=== PATIENT | female | born 1990 | race Caucasian/White ===

== ENCOUNTER 2017-04-11 17:09 | Emergency (ER) | payer OTHER ==
[~2017-04-11] VITALS: Ht 157.4 cm; Wt 72.6 kg
[~2017-04-11 17:09] MED LIST: ANAPROX DS550 MG PO; BACTRIM DS 8001 TA1 PO; BIAXIN500 MG PO; CAMILA0.35 MG PO; CLARITIN10 MG PO; DARVOCET N 1001 TAB PO; MACROBID100 M1 PO; MEDROL DOSEPAK4 MG PO; NKHM; PERCOCET 325 MG1 TA2 PO; PERCOCET 325 MG1 TA5 PO; PRENATAL1 TA3 PO; PROVENTIL0.09 MG/AC IH; SEPTRA DS 800 M1 TAB PO; VICODIN 5/500 505 MG PO; ZANTAC 150150 MG PO; ZITHROMAX Z PA250 MG PO; ZOFRAN ODT4 MG SL
[2017-04-11 17:55] LABS: HEMATOCRIT 40.5 % (37.0-47.0); HEMOGLOBIN 13.7 g/dl (12.0-16.0); MEAN CELL VOLUME 98.8 fl (81.0-99.0); MEAN CORPUSCULAR HGB 33.4 pg (27.0-31.0); MEAN CORPUSCULAR HGB CONC 33.8 g/dl (33.0-37.0); MEAN PLATELET VOLUME 9.3 fl (9.6-12.3); PLATELET COUNT AUTOMATED 292 10*3/uL (130-400); RED CELL DISTRI WIDTH 11.9 % (0-14.5); WHITE BLOOD COUNT 11.1 10*3/uL (4.8-10.8)
[2017-04-11 18:12] LABS: ALBUMIN 4.1 gm/dl (3.1-4.5); ALKALINE PHOSPHATASE 61 U/L (45-117); BILIRUBIN, TOTAL 0.1 mg/dl (0.2-1.0); BUN 10 mg/dl (7-24); CARBON DIOXIDE 28 mmol/L (21-32); CHLORIDE 106 mmol/L (98-107); CPK 60 U/L (26-192); EST GLOM FILT AFRICAN AMERICAN > 60 ml/min; GLUCOSE 89 mg/dL (65-99); LDH 157 U/L (84-246); POTASSIUM 3.9 mmol/L (3.5-5.1); SGOT/AST 9 IU/L (3-35); SGPT/ALT 13 U/L (12-78); SODIUM 143 mmol/L (136-145)
[2017-04-11 18:15] LABS: EOSINOPHIL # 0.1 10*3/uL (0-0.4); EOSINOPHILS 1 % (1-4); LYMPHOCYTE # 5.6 10*3/uL (1.3-4.4); MONOCYTE # 0.7 10*3/uL (0.1-1.0); NEUTROPHIL # 4.8 10*3/uL (2.3-7.9); NEUTROPHILS 43 % (47-73); PLATELET SUFFICIENCY NORMAL (NORMAL); TOTAL CELLS COUNTED 100 #CELLS
[2017-04-11 18:16] LABS: CKMB < 0.5 ng/ml (0.5-3.6); TROPONIN I < 0.015 ng/ml (<0.045)
[2017-04-11] MEDS ORDERED: ZITHROMAX250 MG PO (18:31)
[2017-04-11] MEDS ORDERED: MEDROL DOSEPAK4 MG PO (18:31)
[2017-04-11 19:01] VITALS: BP 116/78
== END 2017-04-11 18:35 | disposition home or self-care (01) ==
LOC: ED 17:09
PROVIDERS: Physician Assistant
DX: J40 Bronchitis, not specified as acute or chronic (principal); B34.9 Viral infection, unspecified; F17.200 Nicotine dependence, unspecified, uncomplicated

== ENCOUNTER 2020-10-23 17:02 | Emergency (ER) | payer SELFPAY ==
[~2020-10-23] VITALS: Ht 154.9 cm; Wt 71.7 kg
[~2020-10-23 17:02] MED LIST changes: +ZITHROMAX250 MG PO
[2020-10-23 17:36] VITALS: BP 127/82
== END 2020-10-23 17:51 | disposition home or self-care (01) ==
LOC: ED 17:02
DX: U07.1 COVID-19 (principal); Z79.899 Other long term (current) drug therapy

== ENCOUNTER 2020-10-31 10:24 | Emergency (ER) | payer SELFPAY ==
[~2020-10-31] VITALS: Ht 154.9 cm; Wt 70.8 kg
[2020-10-31 11:01] VITALS: BP 112/62
== END 2020-10-31 11:16 | disposition home or self-care (01) ==
LOC: ED 10:24
DX: U07.1 COVID-19 (principal); Z79.899 Other long term (current) drug therapy

== ENCOUNTER → 2020-11-03 | Outpatient (CLI) | payer BC | END | disposition home or self-care (01) | LOC: COVID19 09:22 | PROVIDERS: ATTEND Internal Medicine | DX: U07.1 COVID-19 (principal) ==

== ENCOUNTER → 2020-11-13 | Outpatient (CLI) | payer BC | END | disposition home or self-care (01) | LOC: COVID19 09:52 | PROVIDERS: ATTEND Internal Medicine | DX: U07.1 COVID-19 (principal); R06.00 Dyspnea, unspecified ==

== ENCOUNTER → 2020-12-04 | Outpatient (CLI) | payer BC | END | disposition home or self-care (01) | LOC: COVID19 09:15 | PROVIDERS: ATTEND Student in an Organized Health Care Education/Training Program | DX: Z20.822 Contact with and (suspected) exposure to COVID-19 (principal) ==

== ENCOUNTER 2021-01-05 14:32 | Emergency (ER) | payer BC ==
[~2021-01-05] VITALS: Ht 154.9 cm; Wt 70.3 kg
[2021-01-05 14:39] VITALS: BP 125/80
[2021-01-05 15:13] LABS: BASO # 0.1 10*3/uL (0.0-0.1); BASO % 0.7 % (0.0-1.0); EOS # 0.1 10*3/uL (0.0-0.4); EOS % 1.3 % (1.0-4.0); HEMATOCRIT 42.1 % (37.0-47.0); LYMPH # 4.9 10*3/uL (1.3-4.4); LYMPH % 45.6 % (27.0-41.0); MEAN CELL VOLUME 101.7 fl (81.0-99.0); MEAN CORPUSCULAR HGB 34.8 pg (27.0-31.0); MEAN CORPUSCULAR HGB CONC 34.2 g/dl (33.0-37.0); MEAN PLATELET VOLUME 9.2 fl (9.6-12.3); MONO # 0.8 10*3/uL (0.1-1.0); MONO % 7.3 % (3.0-9.0); NEUT # 4.8 10*3/uL (2.3-7.9); NEUT % 44.9 % (47.0-73.0); PLATELET COUNT AUTOMATED 335 10*3/uL (130-400); RED BLOOD COUNT 4.14 10*6/uL (4.10-5.10); RED CELL DISTRI WIDTH 11.6 % (0-14.5); WHITE BLOOD COUNT 10.7 10*3/uL (4.8-10.8)
[2021-01-05 15:19] LABS: BILIRUBIN Negative (Negative); BLOOD Negative (Negative); CLARITY Cloudy (Clear); COLOR Yellow (Yellow); GLUCOSE Negative (Negative); KETONE Negative (Negative); LEUKO ESTERASE Negative (Negative); NITRITE Negative (Negative); UROBILINOGEN 0.2 E.U./dl (0.0-1.0)
[2021-01-05 15:27] LABS: BACTERIA 2+; EPITHELIAL CELLS TNTC; MUCOUS TRACE; RBC 0-2 rbc/hpf (0-2); WBC 0-2 wbc/hpf (0-5)
[2021-01-05 15:30] LABS: ALKALINE PHOSPHATASE 61 U/L (45-117); BETA-HCG, QUANT < 1.0 mIU/mL (1-3); BUN 6 mg/dl (7-24); CHLORIDE 108 mmol/L (98-107); CREATININE 0.75 mg/dL (0.55-1.02); LIPASE 67 U/L (73-393); SGOT/AST 19 IU/L (3-35); SODIUM 140 mmol/L (136-145)
[2021-01-05 15:33] LABS: SGPT/ALT 46 U/L (12-78)
[2021-01-05] MEDS ORDERED: CIPRO500 MG PO (17:49)
[2021-01-05] MEDS ORDERED: PHENERGAN25 M3 PO (17:49)
[2021-01-05] MEDS ORDERED: FLAGYL500 MG PO (17:49)
== END 2021-01-05 18:05 | disposition home or self-care (01) ==
LOC: ED 14:32
PROVIDERS: Emergency Medicine
DX: K52.9 Noninfective gastroenteritis and colitis, unspecified (principal); Z79.899 Other long term (current) drug therapy

== ENCOUNTER 2021-09-07 08:16 | Emergency (ER) | payer OTHER ==
[~2021-09-07] VITALS: Ht 154.9 cm; Wt 68.0 kg
[~2021-09-07 08:16] MED LIST changes: +CIPRO500 MG PO; +FLAGYL500 MG PO; +PHENERGAN25 M3 PO
[2021-09-07 08:26] VITALS: BP 128/83
[2021-09-07 09:16] LABS: BASO # 0.1 10*3/uL (0.0-0.1); BASO % 0.8 % (0.0-1.0); EOS # 0.2 10*3/uL (0.0-0.4); EOS % 1.8 % (1.0-4.0); HEMATOCRIT 41.3 % (37.0-47.0); LYMPH # 2.8 10*3/uL (1.3-4.4); LYMPH % 22.2 % (27.0-41.0); MEAN CORPUSCULAR HGB 35.2 pg (27.0-31.0); MEAN CORPUSCULAR HGB CONC 34.1 g/dl (33.0-37.0); MEAN PLATELET VOLUME 9.3 fl (9.6-12.3); MONO # 0.9 10*3/uL (0.1-1.0); MONO % 7.2 % (3.0-9.0); NEUT # 8.4 10*3/uL (2.3-7.9); NEUT % 67.8 % (47.0-73.0); PLATELET COUNT AUTOMATED 280 10*3/uL (130-400); RED BLOOD COUNT 4.01 10*6/uL (4.10-5.10); RED CELL DISTRI WIDTH 11.9 % (0-14.5); WHITE BLOOD COUNT 12.4 10*3/uL (4.8-10.8)
[2021-09-07 09:34] LABS: ALBUMIN 3.5 gm/dl (3.1-4.5); ALKALINE PHOSPHATASE 66 U/L (45-117); BUN 7 mg/dl (7-24); CHLORIDE 111 mmol/L (98-107); CREATININE 0.67 mg/dL (0.55-1.02); LIPASE 51 U/L (73-393); POTASSIUM 3.9 mmol/L (3.5-5.1); SGOT/AST 16 IU/L (3-35); SGPT/ALT 37 U/L (12-78); SODIUM 140 mmol/L (136-145); TOTAL PROTEIN 6.9 gm/dL (6.4-8.2)
[2021-09-07 09:37] LABS: BETA-HCG, QUANT < 1.0 mIU/mL (1-3)
[2021-09-07 10:19] LABS: BILIRUBIN Negative (Negative); BLOOD Negative (Negative); CLARITY Cloudy (Clear); COLOR Yellow (Yellow); GLUCOSE Negative (Negative); KETONE Negative (Negative); LEUKO ESTERASE 1+ (Negative); NITRITE Negative (Negative); SPECIFIC GRAVITY <= 1.005 (1.001-1.030); UROBILINOGEN 0.2 E.U./dl (0.0-1.0)
[2021-09-07 10:25] LABS: BACTERIA 2+; RBC 0-2 rbc/hpf (0-2)
[2021-09-07] MEDS ORDERED: Motrin,Rufen800 MG PO (11:35)
[2021-09-07] MEDS ORDERED: ZOFRAN4 MG PO (11:35)
== END 2021-09-07 11:42 | disposition home or self-care (01) ==
LOC: ED 08:16
PROVIDERS: Emergency Medicine
DX: K52.9 Noninfective gastroenteritis and colitis, unspecified (principal)

== ENCOUNTER → 2021-11-03 | Outpatient (CLI) | payer OTHER ==
[~2021-11-03] MED LIST changes: +Motrin,Rufen800 MG PO; +ZOFRAN4 MG PO
[2021-11-03 10:34] LABS: VITAMIN D, 25-HYDROXY 32.9 ng/mL (30-100)
== END | disposition home or self-care (01) ==
LOC: LAB 09:00
PROVIDERS: ATTEND Psychiatry & Neurology Psychiatry
DX: R53.83 Other fatigue (principal); E55.9 Vitamin D deficiency, unspecified

== ENCOUNTER 2023-08-01 16:14 | Emergency (ER) | payer OTHER ==
[~2023-08-01] VITALS: Ht 154.9 cm; Wt 77.1 kg
[2023-08-01 16:37] VITALS: BP 120/80
[2023-08-01 18:48] LABS: HEMATOCRIT 42.5 % (37.0-47.0); MEAN CORPUSCULAR HGB 35.8 pg (27.0-31.0); MEAN CORPUSCULAR HGB CONC 35.8 g/dl (33.0-37.0); MEAN PLATELET VOLUME 8.9 fl (9.6-12.3); PLATELET COUNT AUTOMATED 311 10*3/uL (130-400); RED BLOOD COUNT 4.25 10*6/uL (4.10-5.10); RED CELL DISTRI WIDTH 11.5 % (0-14.5); WHITE BLOOD COUNT 13.5 10*3/uL (4.8-10.8)
[2023-08-01 18:50] LABS: MANUAL DIFF REFLEX YES
[2023-08-01 19:11] LABS: ALKALINE PHOSPHATASE 73 U/L (46-116); CHLORIDE 108 mmol/L (98-107); LIPASE 32 U/L (12-53); SGPT/ALT 13 U/L (10-49); TOTAL PROTEIN 6.9 gm/dL (6.0-8.0)
[2023-08-01 19:12] LABS: BUN < 5 mg/dl (9-23)
[2023-08-01 19:29] LABS: ATYPICAL LYMPHS 3 % (0-0); PLATELET SUFFICIENCY NORMAL (NORMAL); TOTAL CELLS COUNTED 100 #CELLS
[2023-08-01 19:30] LABS: BURR CELLS FEW
[2023-08-01 19:37] LABS: BILIRUBIN Negative (Negative); BLOOD Negative (Negative); CLARITY Cloudy (Clear); COLOR Yellow (Yellow); GLUCOSE Negative (Negative); KETONE Negative (Negative); LEUKO ESTERASE 1+ (Negative); NITRITE Negative (Negative); PH 7.5 (4.5-8.0); SPECIFIC GRAVITY <= 1.005 (1.001-1.030); UROBILINOGEN 0.2 E.U./dl (0.0-1.0)
[2023-08-01 20:04] LABS: BACTERIA 2+; RBC 0-2 rbc/hpf (0-2)
[2023-08-01] MEDS ORDERED: OMEPRAZOLE MAGN20 MG PO (20:18)
[2023-08-01] MEDS ORDERED: SEPTDS PO (20:18)
== END 2023-08-01 20:36 | disposition home or self-care (01) ==
LOC: ED 16:14
PROVIDERS: Physician Assistant Medical
DX: N39.0 Urinary tract infection, site not specified (principal); K21.9 Gastro-esophageal reflux disease without esophagitis; Z98.890 Other specified postprocedural states; Z86.16 Personal history of COVID-19

== ENCOUNTER 2024-01-13 06:03 | Emergency (ER) | payer OTHER ==
[~2024-01-13] VITALS: Ht 154.9 cm; Wt 82.6 kg
[~2024-01-13 06:03] MED LIST changes: +OMEPRAZOLE MAGN20 MG PO; +SEPTDS PO
[2024-01-13 06:12] VITALS: BP 138/83
== END 2024-01-13 07:03 | disposition home or self-care (01) ==
LOC: ED 06:03
DX: J10.1 Influenza due to other identified influenza virus with other respiratory manifestations (principal); Z20.822 Contact with and (suspected) exposure to COVID-19; Z98.890 Other specified postprocedural states; Z87.891 Personal history of nicotine dependence

== ENCOUNTER 2025-06-24 12:22 | Emergency (ER) | payer BC ==
[~2025-06-24] VITALS: Ht 154.9 cm; Wt 122.5 kg
[2025-06-24 12:43] VITALS: BP 123/80
[2025-06-24] MEDS ORDERED: MG-AL HYDROXIDE/SIMETICONE 30 ML UDC PO STA (13:03)
[2025-06-24] MEDS ORDERED: Dicyclomine Hydrochloride 20 MG/10 ML OSYR PO STA (13:03)
[2025-06-24] MEDS ORDERED: Ondansetron Hydrochloride 4 MG/2 ML VIAL IV ONE (13:05)
[2025-06-24] MEDS ORDERED: SODIUM CHLORIDE 0.9% 1,000 ML IV ONE (13:05)
[2025-06-24 13:18] LABS: BASO # 0.1 10*3/uL (0.0-0.1); BASO % 0.9 % (0.0-1.0); EOS # 0.3 10*3/uL (0.0-0.4); EOS % 2.9 % (1.0-4.0); MEAN CELL VOLUME 97.3 fl (81.0-99.0); MEAN CORPUSCULAR HGB 33.3 pg (27.0-31.0); MEAN PLATELET VOLUME 8.8 fl (9.6-12.3); MONO # 0.7 10*3/uL (0.1-1.0); MONO % 7.3 % (3.0-9.0); NEUT # 4.7 10*3/uL (2.3-7.9); NEUT % 49.2 % (47.0-73.0); NUCLEATED RED BLOOD CELL 0.0 % (0.0-0.0); NUCLEATED RED BLOOD CELL 0.0 10*3/uL (0.0-0.0); PLATELET COUNT AUTOMATED 352 10*3/uL (130-400); RED CELL DISTRI WIDTH 11.4 % (0-14.5)
[2025-06-24 13:29] LABS: BILIRUBIN Negative (Negative); BLOOD 3+ (Negative); CLARITY Cloudy (Clear); COLOR Red (Yellow); KETONE Negative (Negative); LEUKO ESTERASE 1+ (Negative); NITRITE Negative (Negative); PH 6.0 (4.5-8.0); SPECIFIC GRAVITY 1.015 (1.001-1.030); UROBILINOGEN 1.0 E.U./dl (0.0-1.0)
[2025-06-24 13:37] LABS: RBC TNTC rbc/hpf (0-2)
[2025-06-24 13:39] LABS: BUN 6 mg/dl (9-23); SGPT/ALT 19 U/L (5-49)
[2025-06-24] MEDS ORDERED: IOHEXOL 300 MG/ML 100 ML VIAL IV ONE (13:45)
[2025-06-24] MEDS ORDERED: IOHEXOL 300 MG/ML 100 ML VIAL ONE (14:08)
[2025-06-24] MEDS ORDERED: PRILOSEC20 M1 PO (15:56)
== END 2025-06-24 16:40 | disposition home or self-care (01) ==
LOC: ED 12:22
PROVIDERS: Nurse Practitioner Family
DX: K21.9 Gastro-esophageal reflux disease without esophagitis (principal); Z90.49 Acquired absence of other specified parts of digestive tract